=== PATIENT | female | born 1995 | race Caucasian/White ===

== ENCOUNTER 2016-08-27 03:43 | Emergency (ER) | payer OTHER ==
[~2016-08-27] VITALS: Ht 157.5 cm; Wt 53.1 kg
[2016-08-27] MEDS ORDERED: PENICILLIN V POTASSIUM 500 MG TAB PO SCH (04:45)
[2016-08-27] MEDS ORDERED: PERCOCET 5MG/325MG TAB As Ordered ONE (05:03)
--- NOTE | 2016-08-27 05:07 | EDDOCDS ---
Physician Documentation [facility] Name: Dariela Alcala Age: 21 yrs Sex: Female : 1995 Arrival Date: 08/27/2016 Time: 03:43 Bed 10 Private MD: Disposition: 08/27/16 04:35 Discharged to Home/Self Care. Impression: Acute pharyngitis. - Condition is Stable. - Prescriptions for Amoxicillin 500 mg Oral Capsule - take 1 capsule by ORAL route every 8 hours for 10 days; 30 tablet. - Medication Reconciliation, Local Pharmacy Hours form. - Follow up: Private Physician; When: Call to arrange an appointment; Reason: Recheck today's complaints. - Problem is new. - Symptoms are unchanged. Historical: - Allergies: Ibuprofen (Vomit); - Home Meds: 1. none - PMHx: none; - PSHx: none; - Social history: Smoking status: Patient uses tobacco products, light tobacco smoker. No barriers to communication noted, The patient speaks fluent Ukrainian, Speaks appropriately for age. - Family history: No immediate family members are acutely ill. - : The pt / caregiver states he / she is not on anticoagulants. Home medication list is obtained from the patient. - Exposure Risk Screening:: None identified. 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 2 in. (157.48 cm); 04:59 BP 113 / 63; Pulse 83; Resp 16; Pulse Ox 100% ; Pain 9/10; mlc 05:06 Temp 99.2(O); mlc 04:02 Body Mass Index 21.40 (53.07 kg, 157.48 cm) cz MDM: 04:12 Strep Screen, Nursing ordered. cz 04:31 Penicillin VK 500 mg PO once ordered. cs11 05:00 Financial registration complete. hs2 05:02 oxyCODONE-acetaminophen 5 mg-325 mg 1 tabs PO once ordered. cs11 Administered Medications: 04:59 Drug: Penicillin VK 500 mg [penicillin V potassium 250 mg tablet (2 tabs)] Route: PO; mlc 05:05 Follow up: Response: Pt left department before re-evaluation is appropriate mlc 05:05 Drug: oxyCODONE-acetaminophen 1 tabs [oxycodone-acetaminophen 5 mg-325 mg tablet (1 mlc tabs)] Route: PO; 05:05 Follow up: Response: Confirmed pt not driving.; Pt left department before re-evaluation mlc is appropriate Signatures: Edson Carr RN RN cz Ankit Avery DO DO cs11 Tawanna Lynn RN RN [facility] Sabiha Olivo, Reg Reg hs2 MTDD
--- NOTE | 2016-08-27 05:07 | EDDOCDS ---
Nurse's Notes [facility] Name: Dariela Alcala Age: 21 yrs Sex: Female : 1995 Arrival Date: 08/27/2016 Time: 03:43 Bed 10 Private MD: Diagnosis: Acute pharyngitis Presentation: 08/27 03:56 Presenting complaint: Patient states: started with a sore throat a few days ago today cz has cough pt states hurts to take a deep breathe productive cough dark brown pt states coughed up some blood prior to arrival. Risk factors: Stridor is not present. Drooling is not present. Shortness of breath is not present. Cellulitis is not present. Adult Sepsis Screening: The patient does not have new or worsening altered mentation. Patient's respiratory rate is less than 22. Systolic blood pressure is greater than 100. Patient has a qSOFA score of 0- Negative Sepsis Screen. Suicide/Homicide risk assessment- the patient denies having any suicidal and/or homicidal ideations and does not present with any other emotional, behavioral or mental health complaints. 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 Transition of care: patient was not received from another setting of care. 03:56 Acuity: SHANNON Level 4 cz 03:56 Method Of Arrival: Walkin/Carried/Asstd Triage Assessment: 04:02 General: Appears uncomfortable. HIV screening NA for this visit Offered previously. 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 none - PMHx: none; - PSHx: none; - Social history: Smoking status: Patient uses tobacco products, light tobacco smoker. No barriers to communication noted, The patient speaks fluent Cuban, Speaks appropriately for age. - Family history: No immediate family members are acutely ill. - : The pt / caregiver states he / she is not on anticoagulants. Home medication list is obtained from the patient. - Exposure Risk Screening:: None identified. Screenin:24 Screening information is obtained from the patient. Fall risk: No risks identified. mlc Assistance ADL's: requires no assistance with activities of daily living. Abuse/DV Screen: The patient / caregiver reports he/she is: not in a situation that causes fear, pain or injury. Nutritional screening: No deficits noted. Advance Directives: Currently, there is no health care proxy. home support is adequate. Assessment: 04:24 General: Appears in no apparent distress, comfortable, Behavior is appropriate for age, mlc cooperative. Pain: Location: throat. Neurological: Level of Consciousness is awake, alert, obeys commands, Oriented to person, place, time. EENT: Tympanic membrane clear on right ear and left ear Throat has patchy exudate has enlarged tonsils bilaterally. Cardiovascular: Heart tones S1 S2 present. Respiratory: Airway is patent Respiratory effort is even, unlabored, Respiratory pattern is regular, Breath sounds are clear bilaterally. Reports cough that is productive, pain with cough pain with respiration. Derm: Skin is pink, warm & dry. 04:59 Reassessment: Patient appears in no apparent distress at this time. Pain: Pain mlc currently is 9 out of 10 on a pain scale. Neurological: Level of Consciousness is awake, alert, Oriented to person, place, time. Respiratory: Airway is patent Respiratory effort is even, unlabored, Respiratory pattern is regular. Vital Signs: 04:02 BP 115 / 68; Pulse 100; Resp 16; Temp 99.7(T); Pulse Ox 98% on R/A; Weight 53.07 kg; cz Height 5 ft. 2 in. (157.48 cm); 04:59 BP 113 / 63; Pulse 83; Resp 16; Pulse Ox 100% ; Pain 9/10; mlc 05:06 Temp 99.2(O); mlc 04:02 Body Mass Index 21.40 (53.07 kg, 157.48 cm) cz Vitals: 04:02 Log In Time: August 27, 2016 at 03:43. cz 04:12 Strep Screen is obtained and tested: Positive. cz ED Course: 03:45 Patient visited by Alan Goss, Reg. pm4 03:45 Patient moved to Waiting pm4 04:01 Triage Initiated cz 04:08 Tawanna Lynn RN is Primary Nurse. cz 04:08 Patient moved to 10 cz 04:24 Ankit Avery DO is Attending Physician. cs11 04:24 Patient visited by Ankit Avery DO. cs11 04:26 Patient visited by Tawanna Lynn RN. mlc 04:59 The patient / caregiver is instructed regarding the plan of care and ED course. mlc 04:59 No IV's were initiated during this patient's visit. No procedures done that require mlc assistance. Administered Medications: 04:59 Drug: Penicillin VK 500 mg [penicillin V potassium 250 mg tablet (2 tabs)] Route: PO; mlc 05:05 Follow up: Response: Pt left department before re-evaluation is appropriate mlc 05:05 Drug: oxyCODONE-acetaminophen 1 tabs [oxycodone-acetaminophen 5 mg-325 mg tablet (1 mlc tabs)] Route: PO; 05:05 Follow up: Response: Confirmed pt not driving.; Pt left department before re-evaluation mlc is appropriate Order Results: There are currently no results for this order. Outcome: 04:35 Discharge ordered by Provider. cs11 04:59 Discharge Assessment: Patient awake, alert and oriented x 3. No cognitive and/or mlc functional deficits noted. Patient verbalized understanding of disposition instructions. The following High Risk Discharge criteria are identified: None. Discharged to home ambulatory, with significant other. Condition: good Condition: stable. Discharge instructions given to patient, Instructed on discharge instructions, follow up and referral plans. medication usage, Demonstrated understanding of instructions, medications, Pt was receptive of discharge instructions/ teaching. Prescriptions given X 1. No special radiology studies were completed. Property sent home with patient. 05:06 Discharge Assessment: patient administered narcotics - yes. Pt provided with safe mlc discharge. 05:06 Patient left the ED. mlc Signatures: Edson Carr, RN Ankit Woodall, DO DO cs11 Tawanna Lynn RN RN mlc Montondo, Paul, Reg Reg pm4 MTDD
--- NOTE | 2016-08-29 06:07 | EDDOCDS ---
Physician Documentation [facility] Name: Dariela Alcala Age: 21 yrs Sex: Female : 1995 Arrival Date: 08/27/2016 Time: 03:43 Bed 10 Private MD: Disposition: 08/27/16 04:35 Discharged to Home/Self Care. Impression: Acute pharyngitis. - Condition is Stable. - Prescriptions for Amoxicillin 500 mg Oral Capsule - take 1 capsule by ORAL route every 8 hours for 10 days; 30 tablet. - Medication Reconciliation, Local Pharmacy Hours form. - Follow up: Private Physician; When: Call to arrange an appointment; Reason: Recheck today's complaints. - Problem is new. - Symptoms are unchanged. Historical: - Allergies: Ibuprofen (Vomit); - Home Meds: 1. none - PMHx: none; - PSHx: none; - Social history: Smoking status: Patient uses tobacco products, light tobacco smoker. No barriers to communication noted, The patient speaks fluent [place]guill[place], Speaks appropriately for age. - Family history: No immediate family members are acutely ill. - : The pt / caregiver states he / she is not on anticoagulants. Home medication list is obtained from the patient. - Exposure Risk Screening:: None identified. 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 2 in. (157.48 cm); 04:59 BP 113 / 63; Pulse 83; Resp 16; Pulse Ox 100% ; Pain 9/10; mlc 05:06 Temp 99.2(O); mlc 04:02 Body Mass Index 21.40 (53.07 kg, 157.48 cm) cz MDM: 04:12 Strep Screen, Nursing ordered. cz 04:31 Penicillin VK 500 mg PO once ordered. cs11 05:00 Financial registration complete. hs2 05:02 oxyCODONE-acetaminophen 5 mg-325 mg 1 tabs PO once ordered. cs11 05:24 [facility] Payment Agreement was scanned into [employer] and attached to record. hs2 14:28 T-Sheet-- Draft Copy was scanned into [employer] and attached to record. gb Administered Medications: 04:59 Drug: Penicillin VK 500 mg [penicillin V potassium 250 mg tablet (2 tabs)] Route: PO; mlc 05:05 Follow up: Response: Pt left department before re-evaluation is appropriate mlc 05:05 Drug: oxyCODONE-acetaminophen 1 tabs [oxycodone-acetaminophen 5 mg-325 mg tablet (1 mlc tabs)] Route: PO; 05:05 Follow up: Response: Confirmed pt not driving.; Pt left department before re-evaluation mlc is appropriate Signatures: Edson Carr, RN RN cz Alda Pan, Reg Reg gb Ankit Avery, DO cs11 Tawanna Lynn RN RN [facility] Sabiha Olivo, Reg Reg hs2 The chart was reviewed and I authenticate all verbal orders and agree with the evaluation and treatment provided.Attachments: 05:24 [facility] Payment Agreement hs2 14:28 T-Sheet-- Draft Copy Chart Complete MTDD
--- NOTE | 2016-08-29 06:07 | EDDOCDS ---
Physician Documentation [facility] Name: Dariela Alcala Age: 21 yrs Sex: Female : 1995 Arrival Date: 08/27/2016 Time: 03:43 Bed 10 Private MD: Disposition: 08/27/16 04:35 Discharged to Home/Self Care. Impression: Acute pharyngitis. - Condition is Stable. - Prescriptions for Amoxicillin 500 mg Oral Capsule - take 1 capsule by ORAL route every 8 hours for 10 days; 30 tablet. - Medication Reconciliation, Local Pharmacy Hours form. - Follow up: Private Physician; When: Call to arrange an appointment; Reason: Recheck today's complaints. - Problem is new. - Symptoms are unchanged. Historical: - Allergies: Ibuprofen (Vomit); - Home Meds: 1. none - PMHx: none; - PSHx: none; - Social history: Smoking status: Patient uses tobacco products, light tobacco smoker. No barriers to communication noted, The patient speaks fluent Japanese, Speaks appropriately for age. - Family history: No immediate family members are acutely ill. - : The pt / caregiver states he / she is not on anticoagulants. Home medication list is obtained from the patient. - Exposure Risk Screening:: None identified. 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 2 in. (157.48 cm); 04:59 BP 113 / 63; Pulse 83; Resp 16; Pulse Ox 100% ; Pain 9/10; mlc 05:06 Temp 99.2(O); mlc 04:02 Body Mass Index 21.40 (53.07 kg, 157.48 cm) cz MDM: 04:12 Strep Screen, Nursing ordered. cz 04:31 Penicillin VK 500 mg PO once ordered. cs11 05:00 Financial registration complete. hs2 05:02 oxyCODONE-acetaminophen 5 mg-325 mg 1 tabs PO once ordered. cs11 05:24 [facility] Payment Agreement was scanned into [employer] and attached to record. hs2 14:28 T-Sheet-- Draft Copy was scanned into [employer] and attached to record. gb Administered Medications: 04:59 Drug: Penicillin VK 500 mg [penicillin V potassium 250 mg tablet (2 tabs)] Route: PO; mlc 05:05 Follow up: Response: Pt left department before re-evaluation is appropriate mlc 05:05 Drug: oxyCODONE-acetaminophen 1 tabs [oxycodone-acetaminophen 5 mg-325 mg tablet (1 mlc tabs)] Route: PO; 05:05 Follow up: Response: Confirmed pt not driving.; Pt left department before re-evaluation mlc is appropriate Signatures: Edson Carr, RN RN cz Alda Pan, Reg Reg gb Ankit Avery, DO cs11 Tawanna Lynn RN RN [facility] [place] Sabiha Olivo, Reg Reg hs2 The chart was reviewed and I authenticate all verbal orders and agree with the evaluation and treatment provided.Attachments: 05:24 [facility] Payment Agreement hs2 14:28 T-Sheet-- Draft Copy Chart Complete MTDD
--- NOTE | 2016-08-29 06:07 | EDDOCDS ---
Nurse's Notes [facility] Name: Dariela Alcala Age: 21 yrs Sex: Female : 1995 Arrival Date: 08/27/2016 Time: 03:43 Bed 10 Private MD: Diagnosis: Acute pharyngitis Presentation: 08/27 03:56 Presenting complaint: Patient states: started with a sore throat a few days ago today cz has cough pt states hurts to take a deep breathe productive cough dark brown pt states coughed up some blood prior to arrival. Risk factors: Stridor is not present. Drooling is not present. Shortness of breath is not present. Cellulitis is not present. Adult Sepsis Screening: The patient does not have new or worsening altered mentation. Patient's respiratory rate is less than 22. Systolic blood pressure is greater than 100. Patient has a qSOFA score of 0- Negative Sepsis Screen. Suicide/Homicide risk assessment- the patient denies having any suicidal and/or homicidal ideations and does not present with any other emotional, behavioral or mental health complaints. 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 Transition of care: patient was not received from another setting of care. 03:56 Acuity: SHANNON Level 4 cz 03:56 Method Of Arrival: Walkin/Carried/Asstd Triage Assessment: 04:02 General: Appears uncomfortable. HIV screening NA for this visit Offered previously. 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 none - PMHx: none; - PSHx: none; - Social history: Smoking status: Patient uses tobacco products, light tobacco smoker. No barriers to communication noted, The patient speaks fluent [place], Speaks appropriately for age. - Family history: No immediate family members are acutely ill. - : The pt / caregiver states he / she is not on anticoagulants. Home medication list is obtained from the patient. - Exposure Risk Screening:: None identified. Screenin:24 Screening information is obtained from the patient. Fall risk: No risks identified. mlc Assistance ADL's: requires no assistance with activities of daily living. Abuse/DV Screen: The patient / caregiver reports he/she is: not in a situation that causes fear, pain or injury. Nutritional screening: No deficits noted. Advance Directives: Currently, there is no health care proxy. home support is adequate. Assessment: 04:24 General: Appears in no apparent distress, comfortable, Behavior is appropriate for age, mlc cooperative. Pain: Location: throat. Neurological: Level of Consciousness is awake, alert, obeys commands, Oriented to person, place, time. EENT: Tympanic membrane clear on right ear and left ear Throat has patchy exudate has enlarged tonsils bilaterally. Cardiovascular: Heart tones S1 S2 present. Respiratory: Airway is patent Respiratory effort is even, unlabored, Respiratory pattern is regular, Breath sounds are clear bilaterally. Reports cough that is productive, pain with cough pain with respiration. Derm: Skin is pink, warm & dry. 04:59 Reassessment: Patient appears in no apparent distress at this time. Pain: Pain mlc currently is 9 out of 10 on a pain scale. Neurological: Level of Consciousness is awake, alert, Oriented to person, place, time. Respiratory: Airway is patent Respiratory effort is even, unlabored, Respiratory pattern is regular. Vital Signs: 04:02 BP 115 / 68; Pulse 100; Resp 16; Temp 99.7(T); Pulse Ox 98% on R/A; Weight 53.07 kg; cz Height 5 ft. 2 in. (157.48 cm); 04:59 BP 113 / 63; Pulse 83; Resp 16; Pulse Ox 100% ; Pain 9/10; mlc 05:06 Temp 99.2(O); mlc 04:02 Body Mass Index 21.40 (53.07 kg, 157.48 cm) cz Vitals: 04:02 Log In Time: August 27, 2016 at 03:43. cz 04:12 Strep Screen is obtained and tested: Positive. cz ED Course: 03:45 Patient visited by Alan Goss, Reg. pm4 03:45 Patient moved to Waiting pm4 04:01 Triage Initiated cz 04:08 Tawanna Lynn RN is Primary Nurse. cz 04:08 Patient moved to 10 cz 04:24 Ankit Avery DO is Attending Physician. cs11 04:24 Patient visited by Ankit Avery DO. cs11 04:26 Patient visited by Tawanna Lynn RN. mlc 04:59 The patient / caregiver is instructed regarding the plan of care and ED course. mlc 04:59 No IV's were initiated during this patient's visit. No procedures done that require mlc assistance. 05:24 [facility] Payment Agreement was scanned into [employer] and attached to record. hs2 05:26 Patient name changed from Dariela\S\\S\[place]\S\ to Dariela\S\Jazzy\S\[place]. EDMS 14:28 T-Sheet-- Draft Copy was scanned into [employer] and attached to record. gb Administered Medications: 04:59 Drug: Penicillin VK 500 mg [penicillin V potassium 250 mg tablet (2 tabs)] Route: PO; mlc 05:05 Follow up: Response: Pt left department before re-evaluation is appropriate mlc 05:05 Drug: oxyCODONE-acetaminophen 1 tabs [oxycodone-acetaminophen 5 mg-325 mg tablet (1 mlc tabs)] Route: PO; 05:05 Follow up: Response: Confirmed pt not driving.; Pt left department before re-evaluation mlc is appropriate Order Results: There are currently no results for this order. Outcome: 04:35 Discharge ordered by Provider. cs11 04:59 Discharge Assessment: Patient awake, alert and oriented x 3. No cognitive and/or mlc functional deficits noted. Patient verbalized understanding of disposition instructions. The following High Risk Discharge criteria are identified: None. Discharged to home ambulatory, with significant other. Condition: good Condition: stable. Discharge instructions given to patient, Instructed on discharge instructions, follow up and referral plans. medication usage, Demonstrated understanding of instructions, medications, Pt was receptive of discharge instructions/ teaching. Prescriptions given X 1. No special radiology studies were completed. Property sent home with patient. 05:06 Discharge Assessment: patient administered narcotics - yes. Pt provided with safe mlc discharge. 05:06 Patient left the ED. mlc Signatures: [facility] Edson Carr RN RN cz Barnhardt, Gloria, Reg Reg gb Ankit Avery, DO DO cs11 Tawanna Lynn RN RN mlc Stanton, Hillary, Reg Reg hs2 Alan Goss, Reg Reg pm4 Chart Complete MTDD
== END 2016-08-27 05:06 | disposition home or self-care (01) ==
LOC: M ED 03:43
DX: J02.9 Acute pharyngitis, unspecified (principal); F17.210 Nicotine dependence, cigarettes, uncomplicated

== ENCOUNTER → 2016-09-13 | Outpatient (REF) | payer OTHER | LOC: M LAB REF 19:35 | PROVIDERS: ATTEND Physician Assistant | DX: J03.01 Acute recurrent streptococcal tonsillitis (principal) ==